=== PATIENT | male | born 1985 | race Two or more races ===

== ENCOUNTER 2023-06-09 17:01 | Inpatient (IN) | payer MEDICAID ==
[~2023-06-09] VITALS: Ht 170.2 cm; Wt 125.2 kg
[2023-06-09] MEDS ORDERED: KETOROLAC TROMETHAMINE INJ 30 MG/ML VIAL IV ONE (19:30)
[2023-06-09] MEDS ORDERED: HYDROCODONE/APAP 5/325MG TABLET PO ONE ×2 (19:30→22:00)
[2023-06-09] MEDS ORDERED: KETOROLAC TROMETHAMINE 15 MG/ML VIAL ONE (19:31)
[2023-06-09] MEDS ORDERED: HYDROCODONE/APAP 5/325MG TABLET ONE ×2 (19:32→22:31)
[2023-06-09] MEDS ORDERED: IOHEXOL-300 100 ML VIAL IV ONE (21:01)
[2023-06-09] MEDS ORDERED: IV NS 0.9% 250 ML IV ONE (21:01)
[2023-06-09] MEDS ORDERED: CT SWABBABLE VALVE TRANS SET 1 EA INFUS.SET MC ONE (21:01)
[2023-06-09] MEDS ORDERED: IBUP-1955 PO (22:25)
[2023-06-10 00:15] VITALS: BP 140/94; TEMP 98.9; O2SAT 97
[2023-06-10 00:18] VITALS: BP 140/94; TEMP 98.9; O2SAT 97
[2023-06-10] MEDS ORDERED: MAGNESIUM HYDROXIDE 30 ML UDC PO PRN (00:30)
[2023-06-10] MEDS ORDERED: Z GUARD REMEDY 4 OZ OINT TP PRN (00:30)
[2023-06-10] MEDS ORDERED: ZOLPIDEM TARTRATE 5 MG TABLET PO PRN (00:30)
[2023-06-10] MEDS ORDERED: ONDANSETRON HCL/PF 4 MG/2 ML VIAL IVP PRN (00:30)
[2023-06-10] MEDS ORDERED: MAG HYDROX/AL HYDROX/SIMETH 30 ML UDC PO PRN (00:30)
[2023-06-10] MEDS ORDERED: ACETAMINOPHEN 325 MG TABLET PO PRN (00:30)
[2023-06-10] MEDS: MORPHINE SULFATE INJ 4 MG/ML DISP.SYRIN IV PRN ×3 (00:56→10:56)
[2023-06-10] MEDS: HYDROCODONE/APAP 5/325MG TABLET PO PRN ×3 (04:38→22:25)
[2023-06-10 06:44] LABS: BASOPHILS % (AUTO) 0.2 % (0.0-2.0); HEMATOCRIT 42 % (39-51); HEMOGLOBIN 13.5 g/dL (13.5-17.5); LYMPHOCYTES # (AUTO) 2.1 K/uL (0.8-4.8); LYMPHOCYTES % (AUTO) 14.2 % (20.0-44.0); MEAN CORPUSCULAR HEMOGLOBIN 26 PG (26.0-33.0); MEAN CORPUSCULAR HGB CONC 32 g/dl (31.0-36.0); MEAN CORPUSCULAR VOLUME 80 fL (80-96); MONOCYTES # (AUTO) 1.2 K/uL (0.1-1.30); NEUTROPHILS # (AUTO) 11.3 K/uL (1.8-8.9); NEUTROPHILS % (AUTO) 77.6 % (43.0-81.0); PLATELET COUNT (AUTO) 241 K/uL (150-450); RED BLOOD CELL COUNT(AUTO) 5.27 MIL/uL (4.5-6.0); RED CELL DISTRIBUTION WIDTH 13.9 % (11.5-15.0); WHITE BLOOD COUNT (AUTO) 14.5 K/uL (4.3-11.0)
[2023-06-10 06:57] LABS: CALCIUM, SERUM 9.3 mg/dL (8.5-10.1); POTASSIUM 3.9 mmol/L (3.5-5.1)
[2023-06-10 08:00] VITALS: BP 164/109; TEMP 98.4; O2SAT 97
[2023-06-10] MEDS: PANTOPRAZOLE 40 MG VIAL IV SCH (09:52)
[2023-06-10 10:49] LABS: INR 1.04 (0.91-1.10); PARTIAL THROMBOPLASTIN TIME 28.5 SEC (24.3-34.3); PROTHROMBIN TIME 10.9 SECS (9.2-11.1)
[2023-06-10] MEDS: HYDROMORPHONE 1 MG/1 ML DISP.SYRIN IV PRN ×2 (15:30→20:29)
[2023-06-10 16:00] VITALS: BP 161/100; TEMP 99.3; O2SAT 96
[2023-06-10] MEDS ORDERED: Magnesium 1 GM/2 ML VIAL ONE (17:17)
[2023-06-10] MEDS ORDERED: MIDAZOLAM HCL 2 MG/2ML VIAL ONE (17:17)
[2023-06-10] MEDS ORDERED: FENTANYL PF 100MCG/2ML AMPUL ONE (17:17)
[2023-06-10] MEDS ORDERED: LABETALOL HCL IV 100MG VIAL ONE (18:33)
[2023-06-10 19:20] VITALS: BP 143/96; TEMP 98.9; O2SAT 99
[2023-06-10 20:00] VITALS: BP 123/88; TEMP 98; O2SAT 100
[2023-06-11] MEDS: HYDROMORPHONE 1 MG/1 ML DISP.SYRIN IV PRN ×3 (00:40→12:08)
[2023-06-11] MEDS: HYDROCODONE/APAP 5/325MG TABLET PO PRN ×3 (04:46→15:50)
[2023-06-11 06:04] LABS: BASOPHILS # (AUTO) 0.1 K/uL (0.0-0.2); BASOPHILS % (AUTO) 0.7 % (0.0-2.0); EOSINOPHILS # (AUTO) 0.1 K/uL (0.0-0.7); EOSINOPHILS % (AUTO) 0.5 % (0.0-6.0); HEMATOCRIT 40 % (39-51); HEMOGLOBIN 13.1 g/dL (13.5-17.5); LYMPHOCYTES # (AUTO) 1.7 K/uL (0.8-4.8); LYMPHOCYTES % (AUTO) 15.6 % (20.0-44.0); MEAN CORPUSCULAR HEMOGLOBIN 26 PG (26.0-33.0); MEAN CORPUSCULAR HGB CONC 33 g/dl (31.0-36.0); MEAN CORPUSCULAR VOLUME 79 fL (80-96); MONOCYTES % (AUTO) 8.8 % (2.0-12.0); NEUTROPHILS # (AUTO) 8.2 K/uL (1.8-8.9); NEUTROPHILS % (AUTO) 74.4 % (43.0-81.0); PLATELET COUNT (AUTO) 205 K/uL (150-450); RED BLOOD CELL COUNT(AUTO) 5.02 MIL/uL (4.5-6.0); RED CELL DISTRIBUTION WIDTH 13.9 % (11.5-15.0)
[2023-06-11 06:15] LABS: CALCIUM, SERUM 8.8 mg/dL (8.5-10.1); CREATININE 0.9 mg/dL (0.6-1.3); PHOSPHORUS 3.6 mg/dL (2.5-4.9); POTASSIUM 3.9 mmol/L (3.5-5.1)
[2023-06-11 08:00] VITALS: BP 111/88; TEMP 97.5; O2SAT 98
[2023-06-11] MEDS: PANTOPRAZOLE 40 MG VIAL IV SCH (08:18)
[2023-06-11] MEDS ORDERED: LORAZEPAM INJ 2 MG/ML VIAL IV PRN (09:00)
[2023-06-11 12:07] LABS: HEPATITIS B CORE AB, IgM Negative (Negative); HEPATITIS B CORE AB, TOTAL Negative (Negative); HEPATITIS B SURFACE AB Reactive (.); HEPATITIS Be AG Negative (Negative)
[2023-06-11 15:58] VITALS: BP 120/80; TEMP 97.6; O2SAT 99
[2023-06-11 20:00] VITALS: BP 121/66; TEMP 98.2; O2SAT 98
[2023-06-12] MEDS: HYDROMORPHONE 1 MG/1 ML DISP.SYRIN IV PRN (00:14)
[2023-06-12] MEDS: HYDROCODONE/APAP 5/325MG TABLET PO PRN (05:53)
[2023-06-12 07:00] VITALS: BP 109/65; TEMP 98.1; O2SAT 92
[2023-06-12 08:07] LABS: HEPATITIS Be AB Negative (Negative)
[2023-06-12] MEDS: PANTOPRAZOLE 40 MG TABLET.DR PO SCH (08:28)
[2023-06-12 15:00] VITALS: BP 123/62; TEMP 98.4; O2SAT 98
[2023-06-12 19:00] VITALS: BP 126/62; TEMP 99.3; O2SAT 99
[2023-06-13] MEDS: HYDROMORPHONE 1 MG/1 ML DISP.SYRIN IV PRN (03:34)
[2023-06-13 07:00] VITALS: BP 116/84; TEMP 97.4; O2SAT 90
[2023-06-13] MEDS: PANTOPRAZOLE 40 MG TABLET.DR PO SCH (08:01)
[2023-06-13 16:00] VITALS: BP 135/80; TEMP 98.3; O2SAT 98
== END 2023-06-13 19:35 | disposition home health service (06) | DRG 342 ==
LOC: ER 17:06 → MED 06-10
PROVIDERS: ADMIT Internal Medicine; ATTEND Nurse Practitioner Acute Care
PROC: 0RSKXZZ Reposition Left Shoulder Joint, External Approach (ICD-10-PCS; principal; 2023-06-10)
DX: S43.025A Posterior dislocation of left humerus, initial encounter (principal); E66.01 Morbid (severe) obesity due to excess calories; S42.292A Other displaced fracture of upper end of left humerus, initial encounter for closed fracture; M25.421 Effusion, right elbow; W50.0XXA Accidental hit or strike by another person, initial encounter; Z68.41 Body mass index [BMI] 40.0-44.9, adult; S52.124A Nondisplaced fracture of head of right radius, initial encounter for closed fracture; Y93.9 Activity, unspecified; Y92.099 Unspecified place in other non-institutional residence as the place of occurrence of the external cause
CPT/HCPCS: 36415; 70450-TC; 71260-TC; 72125-TC; 73030-TC; 73080-TC; 73090-TC; 73200-TC; 80048-TC; 83735-TC; 84100-TC; 85025-TC; 85610-TC; 85730-TC; 86704; 86705; 86706; 86707; 86803; 86850-TC; 87340; 87350; 97112-TC; 97116-TC; 97530-TC; 97535-TC; A4223; A4565; C9113; G0378; J1170; J1885; J2250; J2270; J2704; J3010; J3475; J3490; J7050; J7120; Q9967